=== PATIENT | male | born 1995 | race Caucasian/White ===

== ENCOUNTER 2020-12-14 22:44 | Emergency (ER) | payer OTHER, SELFPAY ==
[2020-12-14 23:12] VITALS: BP 137/68; PULSE 80; RESP 16; TEMP 37.1; O2SAT 97; BMI 42.0
--- NOTE | 2020-12-14 23:25 | ED_ITS ---
HPI - Ear Problem General Chief complaint: Ear Problems Stated complaint: Bleeding from Left ear Time Seen by Provider: 12/14/20 23:23 Source: patient Mode of arrival: ambulatory Limitations: no limitations History of Present Illness HPI Narrative: 25-year-old male with recurrent ear infections presents with left ear drainage that appears to be blood. He did have some ear pain earlier today and took some ibuprofen, while he was sitting and watching television he noted drainage of left ear. He does not describe any fevers, chills, pain when chewing, facial pain, neck pain, or any other concerning symptoms. MD Complaint: ear pain and ear discharge Location: left ear Duration: constant Severity: moderate Relieving factors: NDAIDs Exacerbating factors: palpation Discharge from ear: yes - bloody and yes - purulent Treatment prior to arrival: oral analgesic Related Data Previous Rx's Medication Instructions Recorded amoxicillin-pot clavulanate 1 tab PO Q12H 10 Days #20 tab 12/14/20 [Augmentin] Allergies Allergy/AdvReac Type Severity Reaction Status Date / Time cat dander [CAT] Allergy Mild ITCHY EYES Unverified 02/14/20 16:36 DANDER Allergy Unknown HIVES Uncoded 02/14/20 16:36 Review of Systems Review of Systems: Constitutional: No Fever, No Chills ENT/Mouth: Positive left Ear Pain and drainage, No Hoarseness, No sore throat Eyes: No Eye Pain, No Swelling, No Redness, No Foreign Body Cardiovascular: No Chest Pain, No SOB Respiratory: No Cough, No Dyspnea Gastrointestinal: No Nausea, No Vomiting, No Diarrhea, No abdominal Pain Genitourinary: No Dysuria, No Hematuria Musculoskeletal: No joint pain, No Myalgias, No Joint Swelling Skin: No Skin lacerations, No rash Neuro: No Weakness, No Numbness, No Paresthesias, No Loss of Consciousness, No Dizziness, No Headache Psych: No Anxiety/Panic, No Depression Heme/Lymph: no easy bruising, no Lymphadenopathy Endocrine: No Polyuria, No Polydipsia Yes all other systems are reviewed and are negative FORMERLY [facility], 1928–1983 Past Medical History Attestation statement: The following information was validated with the patient. Source: old records reviewed Social History Social History Advance Directives: No Advance Directives Information Provided: No Physical Exam Vital Signs: Vital Signs: Last Vital Signs Temp 98.7 F 12/14/20 23:12 Pulse 80 12/14/20 23:12 Resp 16 12/14/20 23:12 BP 137/68 12/14/20 23:12 Pulse Ox 97 12/14/20 23:12 Body Mass Index 42.0 Appearance: Alert. Oriented X3. No acute distress. Eyes: Pupils equal, round and reactive to light. ENT: Pharynx normal. No mastoid tenderness bilaterally, right tympanic membrane visualized moderate cerumen circumferentially to the auditory canal, left tympanic membrane and auditory canal erythematous with malodorous purulent sanguinous drainage. Neck: Normal inspection. Neck supple. CVS: Normal heart rate and rhythm. Pulses normal. Respiratory: No respiratory distress. Breath sounds normal. Abdomen: Soft and nontender. Skin: Skin warm and dry. Normal skin color. Normal skin turgor. Extremities: No lower extremity edema. Neuro: No motor deficit. No sensory deficit. Course Course Course Narrative: 25-year-old male with past medical history of recurrent ear infections with past myringotomy tubes presents with left-sided ear pain and sanguinous drainage. Left ear canal and tympanic membrane erythematous with purulent sanguinous drainage. No mastoid tenderness. Patient appears nontoxic. This is the 1st day that he has felt pain and has had drainage. Will give Augmentin and have patient follow-up with ENT. Patient verbalized understanding of and agrees to plan of care discharge home. MDM - Ear Differential Diagnosis Differential diagnosis: Likely otitis externa, otitis media, ruptured TM and cerumen impaction Medical Records Attestation: I reviewed the patient's medical records. Discharge Plan Discharge Clinical Impression: Otitis externa Qualifiers: Otitis externa type: diffuse Chronicity: acute Laterality: left Qualified Code( s): H60.312 - Diffuse otitis externa, left ear Otitis media Qualifiers: Otitis media type: suppurative Chronicity: acute Laterality: left Recurrence: recurrent Spontaneous tympanic membrane rupture: without spontaneous rupture Qualified Code(s): H66.005 - Acute suppurative otitis media without spontaneous rupture of ear drum, recurrent, left ear Patient Disposition: Home, Self-Care Instructions: Otitis Externa (ED), Ear Infection (ED), Serous Otitis Media (ED) Additional Instructions: You were evaluated for left ear pain and bloody drainage. You have a significant ear infection to the left side. You must follow-up with ENT. Please call tomorrow morning for an evaluation. I provided you phone number for Dr. Garcia. Please take Augmentin as directed. Thank you for choosing this emergency department for evaluation. Please follow-up with primary care physician as needed. Return to the emergency department for any new, concerning, or worsening symptoms. Prescriptions: New amoxicillin-pot clavulanate [Augmentin] 875-125 mg tablet 1 tab PO Q12H 10 Days Qty: 20 RF: 0 Referrals: Jayden Garcia [Physician] - 2 days (Severe left ear otitis media and externa) Stand Alone Forms: Work/School Release Interventions: ED Discharge Assessment Last Done: 12/15/20 00:52 Discharge Date/Time: 12/15/20 00:14
[2020-12-15] MEDS: Amoxicillin/Potassium Clav 875 MG TABLET PO (00:26)
== END 2020-12-15 00:14 | disposition home or self-care (01) ==
PROVIDERS: Emergency Provider Student in an Organized Health Care Education/Training Program; PCP Internal Medicine
DX: H60.312 Diffuse otitis externa, left ear (principal); H66.005 Acute suppurative otitis media without spontaneous rupture of ear drum, recurrent, left ear; H92.02 Otalgia, left ear
CPT/HCPCS: 99283